=== PATIENT | female | born 1980 | race Caucasian/White ===

== ENCOUNTER 2017-08-13 17:56 | Emergency (ER) | payer OTHER ==
[~2017-08-13] VITALS: Ht 167.6 cm; Wt 81.6 kg
[2017-08-13] MEDS ORDERED: FOLIC ACID1 MG PO (18:42)
[2017-08-13] MEDS ORDERED: PRENATAL FORMU1 EAC2 PO (18:42)
== END 2017-08-13 23:37 | disposition home or self-care (01) ==
LOC: ER 17:56
DX: O20.0 Threatened abortion (principal); Z34.81 Encounter for supervision of other normal pregnancy, first trimester

== ENCOUNTER 2017-09-06 13:25 | Emergency (ER) | payer OTHER ==
[~2017-09-06] VITALS: Ht 167.6 cm; Wt 81.6 kg
[~2017-09-06 13:25] MED LIST: FOLIC ACID1 MG PO; PRENATAL FORMU1 EAC2 PO
[2017-09-06] MEDS ORDERED: ATENOLOL25 MG (13:51)
== END 2017-09-06 17:43 | disposition home or self-care (01) ==
LOC: ER 13:25
DX: O20.0 Threatened abortion (principal); Z34.82 Encounter for supervision of other normal pregnancy, second trimester

== ENCOUNTER 2017-12-06 22:02 | Inpatient (IN) | payer OTHER ==
[~2017-12-06] VITALS: Ht 167.6 cm; Wt 88.5 kg
[~2017-12-06 22:02] MED LIST changes: -PROGESTERO50 MG/1 M1 IM
[2017-12-07] MEDS ORDERED: PROGESTERO50 MG/1 M1 IM (03:34)
== END 2017-12-08 11:14 | DRG 781 ==
LOC: LDR 22:02 → OB/GYN 12-07 16:20
PROC: 4A1HXCZ Monitoring of Products of Conception, Cardiac Rate, External Approach (ICD-10-PCS; 2017-12-06)
PROC: BY4FZZZ Ultrasonography of Third Trimester, Single Fetus (ICD-10-PCS; 2017-12-06)
PROC: 3E0F7GC Introduction of Other Therapeutic Substance into Respiratory Tract, Via Natural or Artificial Opening (ICD-10-PCS; principal; 2017-12-07)
PROC: B246ZZZ Ultrasonography of Right and Left Heart (ICD-10-PCS; 2017-12-07)
DX: O99.512 Diseases of the respiratory system complicating pregnancy, second trimester (principal); J45.909 Unspecified asthma, uncomplicated; O26.812 Pregnancy related exhaustion and fatigue, second trimester; O20.0 Threatened abortion

== ENCOUNTER → 2017-12-06 | Emergency (ER) | payer OTHER ==
[~2017-12-06] VITALS: Ht 167.6 cm; Wt 88.5 kg
[~2017-12-06] MED LIST changes: +ATENOLOL25 MG; +PROGESTERO50 MG/1 M1 IM
== END | disposition still patient (30) ==
LOC: ER 13:32
DX: O26.812 Pregnancy related exhaustion and fatigue, second trimester (principal); Z34.82 Encounter for supervision of other normal pregnancy, second trimester

== ENCOUNTER 2018-02-20 07:19 | Outpatient (CLI) | payer OTHER ==
[~2018-02-20 07:19] MED LIST changes: +PROGESTERO50 MG/1 M1 IM
== END 2018-02-20 07:31 | disposition home or self-care (01) ==
LOC: LAB 07:19
DX: O24.419 Gestational diabetes mellitus in pregnancy, unspecified control (principal)

== ENCOUNTER 2018-03-03 12:59 | Inpatient (IN) | payer OTHER ==
[~2018-03-03] VITALS: Ht 167.6 cm; Wt 3.6 kg
[~2018-03-03 12:59] MED LIST changes: +CLONAZEPAM2 MG PO; +SEROQUEL400 MG PO
== END 2018-03-08 15:03 | disposition home or self-care (01) | DRG 785 ==
LOC: O/R 03-05 05:33 → OB/GYN 03-05 07:00 → SURG-SUITE 03-05 10:36 → OB/GYN 03-05 15:56 → SURG-SUITE 03-08 15:03
PROVIDERS: ADMIT Specialist
PROC: 0UL70ZZ Occlusion of Bilateral Fallopian Tubes, Open Approach (ICD-10-PCS; 2018-03-05)
PROC: 4A1HXCZ Monitoring of Products of Conception, Cardiac Rate, External Approach (ICD-10-PCS; 2018-03-05)
PROC: 10D00Z1 Extraction of Products of Conception, Low, Open Approach (ICD-10-PCS; principal; 2018-03-05 07:00)
DX: O34.211 Maternal care for low transverse scar from previous cesarean delivery (principal); O75.82 Onset (spontaneous) of labor after 37 completed weeks of gestation but before 39 completed weeks gestation, with delivery by (planned) cesarean section; Z3A.39 39 weeks gestation of pregnancy; Z37.0 Single live birth; Z30.2 Encounter for sterilization